=== PATIENT | female | born 1960 | race Caucasian/White ===

== ENCOUNTER 2022-06-01 17:41 | Emergency (ER) | payer OTHER, MEDICAID ==
[~2022-06-01] VITALS: Ht 167.6 cm; Wt 75.7 kg
[2022-06-01 18:50] VITALS: BP_SYST 134
[2022-06-01] MEDS ORDERED: IBUP-1969 PO (20:55)
[2022-06-01] MEDS ORDERED: SOM350 PO (20:55)
== END 2022-06-01 19:30 | disposition home or self-care (01) ==
LOC: SED 17:41
DX: S16.1XXA Strain of muscle, fascia and tendon at neck level, initial encounter (principal); S39.012A Strain of muscle, fascia and tendon of lower back, initial encounter; S09.90XA Unspecified injury of head, initial encounter; Z88.6 Allergy status to analgesic agent; V43.62XA Car passenger injured in collision with other type car in traffic accident, initial encounter; Y93.89 Activity, other specified; Y92.89 Other specified places as the place of occurrence of the external cause; Y99.8 Other external cause status
CPT/HCPCS: 70450-TC; 71045; 72100-TC; 72125-TC; 76376; 99284